=== PATIENT | male | born 1970 | race Caucasian/White ===

== ENCOUNTER 2017-09-25 08:00 | Outpatient (CLI) | payer SELFPAY | END 2017-09-25 08:01 | disposition home or self-care (01) | LOC: LAB.R 08:00 | PROVIDERS: ATTEND Nurse Practitioner Family | DX: Z20.2 Contact with and (suspected) exposure to infections with a predominantly sexual mode of transmission (principal) | CPT/HCPCS: 87491; 87591 ==

== ENCOUNTER 2018-09-28 12:52 | Emergency (ER) | payer OTHER ==
[2018-09-28 12:57] VITALS: BP 134/102
[2018-09-28] MEDS ORDERED: ASPIRIN CHEW 81 MG TABLET PO STA (13:04)
--- NOTE | 2018-09-28 13:18 | ED Physician Documentation ---
PD HPI CHEST PAIN - Stated complaint Stated Complaint: CHEST PAIN, HEAD PAIN - Chief complaint Chief Complaint: Cardiac - History obtained from History obtained from: Patient - History of Present Illness Timing - onset: Today - Additional information Additional information: 48-year-old male presents the emergency department for evaluation of chest pain which occurred after he was arrested and placed in the back of a police car. The patient was having no symptoms prior to this. The patient reports that his pain has resolved. The patient denies any recent dyspnea on exertion, URI symptoms, ongoing intermittent chest pain or any other acute symptoms. Currently the patient has no active symptoms. Symptoms resolved with belching. No other associated symptoms. No other concerns Review of Systems Constitutional: denies: Fever, Chills Eyes: denies: Discharge Ears: denies: Ear pain Cardiac: reports: Chest pain / pressure. denies: Palpitations Respiratory: denies: Dyspnea GI: denies: Abdominal Pain : denies: Dysuria Skin: denies: Rash Musculoskeletal: denies: Neck pain Neurologic: reports: Headache. denies: Focal weakness, Syncope Immunocompromised: denies: Chemotherapy PD PAST MEDICAL HISTORY - Present Medications Home Medications: Ambulatory Orders Medication Instructions Recorded Confirmed No Known Home Medications 09/28/18 09/28/18 - Allergies Allergies/Adverse Reactions: Allergies Allergy/AdvReac Type Severity Reaction Status Date / Time No Known Drug Allergies Allergy Verified 09/28/18 12:57 PD ED PE NORMAL - General General: Alert and oriented X 3, No acute distress - HEENT HEENT: Atraumatic, PERRL, EOMI, Ears normal - Neck Neck: Supple, no meningeal sign - Cardiac Cardiac: RRR, Strong equal pulses - Respiratory Respiratory: No respiratory distress, Clear bilaterally - Abdomen Abdomen: Soft - Derm Derm: Normal color - Extremities Extremities: No deformity, Normal ROM s pain - Neuro Neuro: Alert and oriented X 3, No motor deficit, Normal speech - Psych Psych: Normal affect Results - Vitals Vitals: Vital Signs - 24 hr 09/28/18 12:53 Temperature 36.7 C Heart Rate 99 Respiratory 14 Rate Blood Pressure 134/102 H O2 Saturation 100 Oxygen O2 Source Room air - EKG (time done) No standard instances Rhythm: NSR [place]: Normal Intervals: Normal IN, QRS normal Ischemia: Non specific changes PD MEDICAL DECISION MAKING - ED course ED course: The patient has decided that he does not want any testing in the emergency department, I explained to him that this would be an attempt to evaluate his chest pain to rule out any serious etiology. The patient understands this but has still refused any testing at this point. The patient understands that he could have an undiagnosed condition which left untreated could result in significant disability or . I urged the patient to return to the emergency department any point for reevaluation. The patient will be discharged into the custody of the police department Departure - Departure Disposition: 07 Against Medical Advice Clinical Impression: Chest pain Qualifiers: Chest pain type: unspecified Qualified Code(s): R07.9 - Chest pain, unspecified Condition: Good Instructions: ED Chest Pain [facility] Comments: You have decided to leave against my advice for a comprehensive evaluation in the emergency department to further assess your chest pain. This would include lab work, lab work to evaluate for possible heart attack, blood clot and chest x-rays and repeat EKGs. You understand that by leaving without any testing you may have an undiagnosed condition which if left untreated could result in significant disability or . Please return back to the emergency department at any point for reevaluation
== END 2018-09-28 13:31 | disposition left against medical advice (07) ==
LOC: EDUNIT# → ED 12:52
DX: R07.9 Chest pain, unspecified (principal); R94.31 Abnormal electrocardiogram [ECG] [EKG]
CPT/HCPCS: 80053; 80320; 83690; 84484; 85025; 85610; 93005; 99282; 99283

== ENCOUNTER 2021-06-09 08:00 | Outpatient (CLI) | payer SELFPAY | END 2021-06-09 23:59 | disposition home or self-care (01) | LOC: LAB 08:00 | PROVIDERS: ATTEND Physician Assistant Medical | DX: R10.9 Unspecified abdominal pain (principal) | CPT/HCPCS: 87086 ==

== ENCOUNTER 2022-08-29 05:50 | Emergency (ER) | payer MEDICAID ==
--- NOTE | 2022-08-29 06:41 | ED Physician Documentation ---
History of Present Illness - Stated complaint Stated Complaint: FALL/L SCAPULAR AREA SWELLING/PX - Chief complaint Chief Complaint: Trauma Ch/Bk - Additonal information Additional information: Patient is 52-year-old male presenting to the emergency department today with left shoulder pain. Endorses for falling approximately 12 feet from a tree 1 week ago. Has had pain associated with Movement of the left shoulder and decreased range of motion with the left shoulder. Reports that he felt that it was getting better but that he exacerbated a bit by lifting heavy object, his chainsaw, yesterday. Today reports that he felt a mass on the posterior aspect of his scapula. Denies ever noticing this mass previously. Review of Systems Ten Systems: 10 systems reviewed and negative PD PAST MEDICAL HISTORY - Past Medical History Past Medical History: Yes GI: Other Other Past Medical History: Umbilical Hernia - Past Surgical History Past Surgical History: No - Present Medications Home Medications: Ambulatory Orders Medication Instructions Recorded Confirmed No Known Home Medications 09/28/18 09/28/18 - Allergies Allergies/Adverse Reactions: Allergies Allergy/AdvReac Type Severity Reaction Status Date / Time No Known Drug Allergies Allergy Verified 08/29/22 06:16 - Social History Does the pt smoke?: Yes Smoking Status: Current every day smoker Does the pt drink ETOH?: No Does the pt have substance abuse?: No - Immunizations Immunizations are current?: Yes - POLST Patient has POLST: No PD ED PE NORMAL - Vitals Vital signs reviewed: Yes - General General: Alert and oriented X 3, No acute distress, Well developed/nourished - HEENT HEENT: Atraumatic, PERRL, EOMI, Ears normal, Moist mucous membranes, Pharynx benign, Dentition benign - Neck Neck: Supple, no meningeal sign, No bony TTP, No adenopathy, Thyroid normal, No JVD, No bruit, C-Spine cleared by NEXUS criteria - Cardiac Cardiac: RRR, No murmur, No gallop, No rub, Strong equal pulses - Respiratory Respiratory: No respiratory distress, Clear bilaterally - Abdomen Abdomen: Normal bowel sounds, Non tender - Male Male : Deferred - Extremities Extremities: No deformity (2 cm x 3 cm well-circumscribed mass on the posterior aspect of the left clavicle. There is no associated erythema or rubor.), Other (Patient has decreased range of motion of the left shoulder secondary to pain. Full and normal level of flexion and extension to the left hand, pronation and supination and flexion and extension to the fingers and thumb.) Results - Vitals Vitals: Vital Signs - 24 hr 08/29/22 06:05 Temperature 36.4 C L Heart Rate 89 Respiratory 16 Rate Blood Pressure 149/79 H O2 Saturation 100 Oxygen O2 Source Room air PD Medical Decision Making - ED course Complexity details: considered differential, d/w patient ED course: Patient is 52-year-old male presenting to the emergency department with pain and decreased range of motion associated with his left shoulder as well as a 2 cm x 3 cm well-circumscribed mass palpable on the posterior aspect of his left scapula. Reported that his symptoms began initially after falling from a tree 1 week ago. States that he was having some improvement but believes that he reinjured his left upper extremity while lifting his chainsaw earlier today. Physical exam demonstrates a and neurovascularly intact left upper extremity however patient has decreased range of motion at the left shoulder secondary to pain. Cannot abduct, abduct or lift to shoulder greater than 45 degrees. Additionally physical exam demonstrated a 2 cm x 3 cm well-circumscribed palpable mass on the posterior aspect of his left clavicle. There was no associated erythema or rubor to indicate an inflammatory process and overall my initial clinical impression of this mass is that it is likely a sebaceous cyst. I have ordered for some medication for pain control as well as x-rays of the chest and left shoulder. I will be signing the patient out to the oncoming physician, please see their documentation for further detail.
[2022-08-29] MEDS: HYDROcod/ACETAM 5/325 MG TABLET PO STA (06:50)
--- NOTE | 2022-08-29 08:06 | XRAY Report ---
PROCEDURE: Shoulder 3 View BILAT INDICATIONS: fall TECHNIQUE: 3 views of the right and left shoulder shoulder were acquired. COMPARISON: None. FINDINGS: Bones: No acute fractures or dislocations. No suspicious bony lesions. Visualized ribs appear inta ct. Degenerative changes are seen of the acromioclavicular joints bilaterally. Soft tissues: Possible small calcification posterior to the right humeral head seen on one view only may be secondary to calcific tendinopathy. IMPRESSION: 1.No acute osseous abnormality. If there is clinical concern or persistent symptoms, additional imagi ng such as repeat radiographs or advanced imaging (e.g. CT, MRI) may be helpful for further evaluatio n. 2.Suspected right distal rotator cuff calcific tendinopathy. Reviewed by: Franklin Brooks MD on 08/29/2022 8:05 AM PST Approved by: Franklin Brooks MD on 08/29/2022 8:05 AM PST Station ID: [id number]
--- NOTE | 2022-08-29 08:10 | XRAY Report ---
PROCEDURE: Chest 2 View X-Ray INDICATIONS: cough TECHNIQUE: 2 views of the chest were acquired. COMPARISON: Chest radiographs 07/30/2009 FINDINGS: Surgical changes and devices: None. Lungs and pleura: No pleural effusions or pneumothorax. Lungs are clear. Mediastinum: Cardiac silhouette has mildly enlarged when compared to the prior radiographs. The aorta appears mildly tortuous with prominence of the ascending aorta. Bones and chest wall: No suspicious bony abnormalities. Soft tissues appear unremarkable. Mild dege nerative changes are seen in the spine. IMPRESSION: Mildly enlarged cardiac silhouette. There is prominence of the ascending thoracic aortic shadow, whic h may be secondary to tortuosity or underlying ascending aortic aneurysm. CT could be performed for c onfirmation if indicated clinically. Reviewed by: Franklin Brooks MD on 08/29/2022 8:09 AM PST Approved by: Franklin Brooks MD on 08/29/2022 8:09 AM PST Station ID: [id number]
[2022-08-29 09:48] VITALS: BP 144/72
== END 2022-08-29 09:46 | disposition home or self-care (01) ==
LOC: ED 05:50
DX: S46.912A Strain of unspecified muscle, fascia and tendon at shoulder and upper arm level, left arm, initial encounter (principal); X50.0XXA Overexertion from strenuous movement or load, initial encounter; Y93.89 Activity, other specified; L72.3 Sebaceous cyst; M67.813 Other specified disorders of tendon, right shoulder; F17.200 Nicotine dependence, unspecified, uncomplicated
CPT/HCPCS: 71046; 73030; 99281; 99284; A9270

== ENCOUNTER 2023-09-27 08:00 | Outpatient (CLI) | payer MEDICAID ==
[2023-09-27 20:00] LABS: AMPHETAMINE SCREEN,URINE NEGATIVE (NEGATIVE); BARBITURATE SCREEN,UR NEGATIVE (NEGATIVE); BENZODIAZEPINES SCREEN, URINE NEGATIVE (NEGATIVE); BUPRENORPHINE SCREEN, URINE NEGATIVE (NEGATIVE); COCAINE SCREEN URINE NEGATIVE (NEGATIVE); METHADONE SCREEN, URINE NEGATIVE (NEGATIVE); METHAMPHETAMINES SCREEN, URINE NEGATIVE (NEGATIVE); OPIATE SCREEN, URINE NEGATIVE (NEGATIVE); OXYCODONE SCREEN, URINE NEGATIVE (NEGATIVE); THC CANNABINOID SCREEN, URINE POSITIVE (NEGATIVE); TRICYCLIC ANTIDEPRESSANT,URINE NEGATIVE (NEGATIVE)
== END 2023-09-27 23:59 | disposition home or self-care (01) ==
LOC: LAB.F 08:00
PROVIDERS: ATTEND Physician Assistant Medical
DX: F15.10 Other stimulant abuse, uncomplicated (principal)
CPT/HCPCS: 80306

== ENCOUNTER 2023-12-18 14:20 | Outpatient (CLI) | payer MEDICAID ==
[2023-12-18 19:44] LABS: BASOPHILS # (AUTO) 0.1 10^3/uL (0.0-0.1); EOSINOPHILS # (AUTO) 0.1 10^3/uL (0.0-0.7); EOSINOPHILS % (AUTO) 2.1 %; HCT - HEMATOCRIT 48.3 % (42.0-52.0); HGB - HEMOGLOBIN 15.6 g/dL (14.0-18.0); LYMPHOCYTES # (AUTO) 2.5 10^3/uL (1.5-3.5); MEAN CORPUSCULAR HEMOGLOBIN 27.8 pg (27.0-31.0); MEAN CORPUSCULAR HGB CONC 32.3 g/dL (32.0-36.0); MEAN CORPUSCULAR VOLUME 86.1 fL (80.0-94.0); MEAN PLATELET VOLUME 9.5 fL (7.4-11.4); MONOCYTES # (AUTO) 0.7 10^3/uL (0.0-1.0); MONOCYTES % (AUTO) 11.5 %; NEUTROPHILS # (AUTO) 2.8 10^3/uL (1.5-6.6); NEUTROPHILS % (AUTO) 44.2 %; PLT - PLATELET COUNT 322 10^3/uL (130-450); RED BLOOD COUNT 5.61 10^6/uL (4.70-6.10); RED CELL DISTRIBUTION WIDTH 15.3 % (12.0-15.0); WHITE BLOOD COUNT 6.2 x10^3/uL (4.8-10.8)
[2023-12-18 19:56] LABS: ALBUMIN 4.3 g/dL (3.2-5.5); ALBUMIN/GLOBULIN RATIO 1.4 (1.0-2.2); ALKALINE PHOSPHATASE 104 IU/L (42-121); ALT ALANINE AMINOTRANSFERASE 18 IU/L (10-60); AST ASPARTATE AMINOTRANSFERASE 20 IU/L (10-42); BILIRUBIN,TOTAL 0.3 mg/dL (0.2-1.0); BUN - BLOOD UREA NITROGEN 15 mg/dL (6-20); CALCIUM 9.6 mg/dL (8.5-10.3); CARBON DIOXIDE - CO2 29 mmol/L (21-32); CHLORIDE 105 mmol/L (101-111); CHOL/HDL RATIO 5.8 (<5.0); CHOLESTEROL 272 mg/dL; CREATININE 0.9 mg/dL (0.6-1.3); GFR - MDRD 88 (>89); GLUCOSE 76 mg/dL (74-104); HDL CHOLESTEROL 47 mg/dL; LDL CHOLESTEROL,CALCULATED 157 mg/dL; LDL/HDL RATIO 3.3 (<3.6); POTASSIUM 4.3 mmol/L (3.5-4.5); SODIUM 137 mmol/L (135-145); TOTAL PROTEIN 7.4 g/dL (6.4-8.9); TRIGLYCERIDES 341 mg/dL (48-352); VLDL CHOLESTEROL 68 mg/dL
[2023-12-18 21:00] LABS: ESTIMATED AVERAGE GLUCOSE 128 mg/dL (70-100); HEMOGLOBIN A1c% 6.1 % (4.27-6.07)
== END 2023-12-18 14:21 | disposition home or self-care (01) ==
LOC: LAB.S 14:20
PROVIDERS: ATTEND Physician Assistant Medical
DX: Z13.9 Encounter for screening, unspecified (principal); F15.10 Other stimulant abuse, uncomplicated; R36.9 Urethral discharge, unspecified
CPT/HCPCS: 36415; 80053; 80061; 80306; 83036; 83721; 85025; 86592; 86803; 87389; 87491; 87591; 87661

== ENCOUNTER 2023-12-19 08:00 | Outpatient (CLI) | payer MEDICAID ==
[2023-12-19 19:58] LABS: AMPHETAMINE SCREEN,URINE NEGATIVE (NEGATIVE); BARBITURATE SCREEN,UR NEGATIVE (NEGATIVE); BENZODIAZEPINES SCREEN, URINE NEGATIVE (NEGATIVE); BUPRENORPHINE SCREEN, URINE NEGATIVE (NEGATIVE); COCAINE SCREEN URINE NEGATIVE (NEGATIVE); METHADONE SCREEN, URINE NEGATIVE (NEGATIVE); METHAMPHETAMINES SCREEN, URINE NEGATIVE (NEGATIVE); OPIATE SCREEN, URINE NEGATIVE (NEGATIVE); OXYCODONE SCREEN, URINE NEGATIVE (NEGATIVE); THC CANNABINOID SCREEN, URINE POSITIVE (NEGATIVE); TRICYCLIC ANTIDEPRESSANT,URINE NEGATIVE (NEGATIVE)
[2023-12-19 23:50] LABS: CHLAMYDIA TRACHOMATIS DNA NEGATIVE (NEGATIVE); NEISSERIA GONORRHOEAE DNA NEGATIVE (NEGATIVE); TRICHOMONAS VAGINALIS DNA NEGATIVE (NEGATIVE)
== END 2023-12-19 23:59 | disposition home or self-care (01) ==
LOC: LAB.S 08:00
PROVIDERS: ATTEND Physician Assistant Medical
DX: R36.9 Urethral discharge, unspecified (principal); F15.10 Other stimulant abuse, uncomplicated
CPT/HCPCS: 80306; 87491; 87591; 87661

== ENCOUNTER 2024-04-26 22:22 | Outpatient (CLI) | payer MEDICAID | END 2024-04-26 22:23 | disposition EMS.NT | LOC: EMS 22:22 | DX: R10.31 Right lower quadrant pain (principal) ==

== ENCOUNTER 2024-05-12 18:58 | Outpatient (CLI) | payer MEDICAID, OTHER | END 2024-05-12 18:59 | disposition critical access hospital (66) | LOC: EMS 18:58 | DX: R56.9 Unspecified convulsions (principal); R07.9 Chest pain, unspecified; R25.1 Tremor, unspecified; R61 Generalized hyperhidrosis | CPT/HCPCS: A0425; A0429 ==

== ENCOUNTER 2024-05-12 19:35 | Emergency (ER) | payer MEDICAID, OTHER ==
--- NOTE | 2024-05-12 19:46 | ED Physician Documentation ---
PD HPI SEIZURE - Stated complaint Stated Complaint: SZ - History obtained from History obtained from: EMS, Police - Additional information Additional information: 54-year-old gentleman presents [facility] ambulance from [facility]. Was booked a few days ago. Unclear if he was an alcoholic, but it sounds like there was some history of drug use. Today he was found with potential seizure activity. Prehospital blood sugar was unremarkable. No history is available from the patient due to altered mental status. PD PAST MEDICAL HISTORY - Past Medical History GI: Other - Past Surgical History Past Surgical History: No - Present Medications Home Medications: Ambulatory Orders Medication Instructions Recorded Confirmed Aspirin [Astor Aspirin] 81 mg PO DAILY 05/12/24 05/12/24 Atorvastatin Calcium 40 mg PO QPM 05/12/24 05/12/24 Famotidine [Acid Maintenance Apprentice] 20 mg PO BID 05/12/24 05/12/24 lisinopriL [Zestril] 5 mg PO QPM 05/12/24 05/12/24 metFORMIN [Glucophage] 500 mg PO BID 05/12/24 05/12/24 - Allergies Allergies/Adverse Reactions: Allergies Allergy/AdvReac Type Severity Reaction Status Date / Time No Known Drug Allergies Allergy Verified 05/12/24 19:49 - Social History Does the pt smoke?: Yes Smoking Status: Current every day smoker Does the pt drink ETOH?: No Does the pt have substance abuse?: No - Immunizations Immunizations are current?: Yes - POLST Patient has POLST: No PD ED PE NORMAL - Vitals Vital signs reviewed: Yes - General General: Other (This is an ill-appearing and very diaphoretic man who is keeping his eyes closed and can only say okay. He does not follow commands.) - HEENT HEENT: Other (Midpoint symmetric pupils) - Neck Neck: Supple, no meningeal sign, No bony TTP - Cardiac Cardiac: RRR, No murmur, Other (Well-healed sternotomy scar, EMS tells me he had a valvular repair or replacement.) - Respiratory Respiratory: No respiratory distress, Clear bilaterally - Abdomen Abdomen: Other (Severe diffuse abdominal tenderness) - Back Back: No CVA TTP, No spinal TTP - Derm Derm: Normal color, Warm and dry - Extremities Extremities: No edema, No calf tenderness / cord - Neuro Eye Opening: None Motor: Withdraws to Pain Verbal: Incomprehensible GCS Score: 7 Results - Vitals Vitals: Vital Signs - 24 hr 05/12/24 05/12/24 05/12/24 19:42 20:05 20:33 Temperature 37.4 C Heart Rate 87 79 79 Respiratory 17 13 14 Rate Blood Pressure 148/133 H 152/96 H 161/105 H O2 Saturation 100 97 98 05/12/24 21:20 Temperature 36.9 C Heart Rate 71 Respiratory 13 Rate Blood Pressure 145/98 H O2 Saturation 98 Oxygen O2 Source Room air - Labs Labs: Laboratory Tests 05/12/24 05/12/24 05/12/24 19:54 19:54 19:54 WBC 7.5 RBC 4.98 Hgb 14.9 Hct 44.5 MCV 89.4 MCH 29.9 MCHC 33.5 RDW 12.8 Plt Count 392 MPV 8.8 Neut # (Auto) 4.3 Lymph # (Auto) 2.2 [place] # (Auto) 0.8 Eos # (Auto) 0.2 Baso # (Auto) 0.0 Absolute Nucleated RBC 0.00 Nucleated RBC % 0.0 VBG pH VBG pCO2 VBG pO2 VBG HCO3 VBG Total CO2 VBG O2 Saturation VBG Base Excess Sodium 140 Potassium 3.5 Chloride 103 Carbon Dioxide 31 Anion Gap 6.0 BUN 11 Creatinine 0.7 Estimated GFR (MDRD) 117 Glucose 115 H Lactic Acid 1.6 Calcium 9.3 Phosphorus 2.4 L Magnesium 1.6 L Total Bilirubin 0.3 AST 14 ALT 13 Alkaline Phosphatase 82 Total Creatine Kinase 67 Total Protein 6.7 Albumin 4.0 Globulin 2.7 Albumin/Globulin Ratio 1.5 Urine Color Urine Clarity Urine pH Ur Specific [place] Urine Protein Urine Glucose (UA) Urine Ketones Urine Occult Blood Urine Nitrite Urine Bilirubin Urine Urobilinogen Ur Leukocyte Esterase Ur Microscopic Review Urine Culture Comments Salicylates < 1.5 Urine Opiates Screen Ur Buprenorphine Scrn Ur Oxycodone Screen Urine Methadone Screen Acetaminophen < 0.1 Ur Barbiturates Screen Ur Tricyclics Screen Ur Phencyclidine Scrn Ur Amphetamine Screen U Methamphetamines Scrn U Benzodiazepines Scrn Urine Cocaine Screen U Cannabinoids Screen Ur Drug Screen Comment Ethyl Alcohol < 10.0 05/12/24 05/12/24 19:54 20:24 WBC RBC Hgb Hct MCV MCH MCHC RDW Plt Count MPV Neut # (Auto) Lymph # (Auto) [place] # (Auto) Eos # (Auto) Baso # (Auto) Absolute Nucleated RBC Nucleated RBC % VBG pH 7.389 VBG pCO2 47.5 VBG pO2 30.0 VBG HCO3 28.0 VBG Total CO2 29.5 H VBG O2 Saturation 59.4 L VBG Base Excess 2.3 H Sodium Potassium Chloride Carbon Dioxide Anion Gap BUN Creatinine Estimated GFR (MDRD) Glucose Lactic Acid Calcium Phosphorus Magnesium Total Bilirubin AST ALT Alkaline Phosphatase Total Creatine Kinase Total Protein Albumin Globulin Albumin/Globulin Ratio Urine Color LIGHT YELLOW Urine Clarity CLEAR Urine pH 6.5 Ur Specific [place] 1.015 Urine Protein NEGATIVE Urine Glucose (UA) NEGATIVE Urine Ketones NEGATIVE Urine Occult Blood NEGATIVE Urine Nitrite NEGATIVE Urine Bilirubin NEGATIVE Urine Urobilinogen 0.2 (NORMAL) Ur Leukocyte Esterase NEGATIVE Ur Microscopic Review NOT INDICATED Urine Culture Comments NOT INDICATED Salicylates Urine Opiates Screen NEGATIVE Ur Buprenorphine Scrn NEGATIVE Ur Oxycodone Screen NEGATIVE Urine Methadone Screen NEGATIVE Acetaminophen Ur Barbiturates Screen NEGATIVE Ur Tricyclics Screen NEGATIVE Ur Phencyclidine Scrn NEGATIVE Ur Amphetamine Screen POSITIVE H U Methamphetamines Scrn POSITIVE H U Benzodiazepines Scrn NEGATIVE Urine Cocaine Screen NEGATIVE U Cannabinoids Screen POSITIVE H Ur Drug Screen Comment CUTOFF CONC BELOW: Ethyl Alcohol - Rads (name of study) CT head, C-spine, and abdomen pelvis were negative for acute findings. Relevant Findings:: Final report received, EMP independent interpretation of test PD Medical Decision Making - ED course ED course: He presents nearly obtunded with potential seizure activity. That said he seemed to be protecting his airway. He went over for scan including the belly since he did seem tender on initial evaluation. He came back to the department I reexamined him. He was much more awake. Slightly confused but talking and cooperative. He denies recent drug or alcohol use. Nor does he have any history of seizures. On reexamination at that time, approximately 9 PM his abdomen was nontender. Workup demonstrates normal CBC, venous blood gas, unrema rkable CMP, normal lactate, normal urine, and toxicology testing positive for methamphetamines and cannabis. On reexamination at 9:44 PM he is awake and conversant. He does not remember what happened. I do not know if this was seizure activity or some sort of withdrawal process. He is stable now although with normal vital signs save mild hypertension. CT imaging was all negative. Attempted to contact [facility] nurse practitioner, Laurence Rodrigues with no response. I discussed with the deputy at the bedside and they are able to put him in seizure precautions which I think would be appropriate. Departure - Departure Disposition: 01 Home, Self Care Clinical Impression: Altered mental status Qualifiers: Altered mental status type: delirium Qualified Code(s): R41.0 - Disorientation, unspecified Condition: Good Record reviewed to determine appropriate education?: Yes Instructions: ED Seizure New Onset Unk Cause Comments: He was seen today for potential seizure activity, it did not look exactly like seizure when he got here, but labs were all negative with the exception of positive toxicology testing for methamphetamines and cannabis. CT of the head, cervical spine, and abdomen pelvis were all negative. He was tender on abdominal examination on arrival but that resolved prior to discharge. He should be in seizure precautions and have what ever withdrawal precautions the [facility] nurse practitioner thinks are appropriate. Consider follow-up with neurology as an outpatient.
[2024-05-12] MEDS ORDERED: iohexoL-300 100 ML VIAL ONE (19:50)
[2024-05-12 20:03] LABS: BASOPHILS % (AUTO) 0.5 %; EOSINOPHILS # (AUTO) 0.2 10^3/uL (0.0-0.7); EOSINOPHILS % (AUTO) 2.4 %; HCT - HEMATOCRIT 44.5 % (42.0-52.0); HGB - HEMOGLOBIN 14.9 g/dL (14.0-18.0); LYMPHOCYTES # (AUTO) 2.2 10^3/uL (1.5-3.5); LYMPHOCYTES % (AUTO) 29.1 %; MEAN CORPUSCULAR HEMOGLOBIN 29.9 pg (27.0-31.0); MEAN CORPUSCULAR HGB CONC 33.5 g/dL (32.0-36.0); MEAN CORPUSCULAR VOLUME 89.4 fL (80.0-94.0); MEAN PLATELET VOLUME 8.8 fL (7.4-11.4); MONOCYTES # (AUTO) 0.8 10^3/uL (0.0-1.0); MONOCYTES % (AUTO) 10.4 %; NEUTROPHILS # (AUTO) 4.3 10^3/uL (1.5-6.6); NEUTROPHILS % (AUTO) 57.5 %; PLT - PLATELET COUNT 392 10^3/uL (130-450); RED BLOOD COUNT 4.98 10^6/uL (4.70-6.10); RED CELL DISTRIBUTION WIDTH 12.8 % (12.0-15.0); WHITE BLOOD COUNT 7.5 x10^3/uL (4.8-10.8)
[2024-05-12 20:06] LABS: VBG BASE EXCESS 2.3 mmol/L (-2 - +2); VBG OXYGEN SATURATION 59.4 % (60-80); VBG PCO2 47.5 mmHg (41-51); VBG PH 7.389 (7.31-7.41); VBG TOTAL CO2 29.5 mmol/L (24-29)
[2024-05-12 20:20] LABS: ALBUMIN/GLOBULIN RATIO 1.5 (1.0-2.2); ALKALINE PHOSPHATASE 82 IU/L (42-121); ALT ALANINE AMINOTRANSFERASE 13 IU/L (10-60); AST ASPARTATE AMINOTRANSFERASE 14 IU/L (10-42); BILIRUBIN,TOTAL 0.3 mg/dL (0.2-1.0); BUN - BLOOD UREA NITROGEN 11 mg/dL (6-20); CALCIUM 9.3 mg/dL (8.5-10.3); CARBON DIOXIDE - CO2 31 mmol/L (21-32); CHLORIDE 103 mmol/L (101-111); CK- CREATINE KINASE 67 IU/L (30-223); CREATININE 0.7 mg/dL (0.6-1.3); ETOH - ETHANOL < 10.0 mg/dL; GFR - MDRD 117 (>89); GLUCOSE 115 mg/dL (74-104); MAGNESIUM 1.6 mg/dL (1.7-2.3); PHOSPHORUS 2.4 mg/dL (2.5-5.0); POTASSIUM 3.5 mmol/L (3.5-4.5); SODIUM 140 mmol/L (135-145); TOTAL PROTEIN 6.7 g/dL (6.4-8.9)
[2024-05-12 20:23] LABS: SALICYLATE < 1.5 mg/dL
[2024-05-12 20:24] LABS: ACETAMINOPHEN < 0.1 ug/mL
[2024-05-12 20:50] LABS: BILIRUBIN,URINE NEGATIVE (NEGATIVE); GLUCOSE, URINE (UA) NEGATIVE (NEGATIVE); KETONES,URINE (UA) NEGATIVE (NEGATIVE); LEUKOCYTE ESTERASE, URINE NEGATIVE (NEGATIVE); NITRITE,URINE NEGATIVE (NEGATIVE); OCCULT BLOOD,URINE NEGATIVE (NEGATIVE); PH,URINE 6.5 PH (5.0-7.5); PROTEIN,URINE NEGATIVE (NEGATIVE); UROBILINOGEN,URINE 0.2 (NORMAL) E.U./dL (NORMAL)
[2024-05-12 20:52] LABS: CLARITY,URINE CLEAR (CLEAR)
--- NOTE | 2024-05-12 20:55 | CT Report ---
PROCEDURE: Head WO INDICATIONS: ams TECHNIQUE: Noncontrast 4.5 mm thick angled axial sections acquired from the foramen magnum to the vertex. For r adiation dose reduction, the following was used: automated exposure control, adjustment of mA and/or kV according to patient size. COMPARISON: None. FINDINGS: Image quality: Excellent. CSF spaces: Basal cisterns are patent. No extra-axial fluid collections. Ventricles are normal in size and shape. Brain: No midline shift. No intracranial masses or hemorrhage. Dick[place]-white matter interface is norm al. Skull and face: Calvarium and visualized facial bones are intact, without suspicious lesions. Sinuses: Visualized sinuses and mastoids are clear. IMPRESSION: No acute intracranial pathology. Reviewed by: Mercy Michel MD on 05/12/2024 8:54 PM PDT Approved by: Mercy Michel MD on 05/12/2024 8:54 PM PDT Station ID: [id number]
[2024-05-12 21:08] LABS: AMPHETAMINE SCREEN,URINE POSITIVE (NEGATIVE); BARBITURATE SCREEN,UR NEGATIVE (NEGATIVE); BENZODIAZEPINES SCREEN, URINE NEGATIVE (NEGATIVE); BUPRENORPHINE SCREEN, URINE NEGATIVE (NEGATIVE); COCAINE SCREEN URINE NEGATIVE (NEGATIVE); METHADONE SCREEN, URINE NEGATIVE (NEGATIVE); METHAMPHETAMINES SCREEN, URINE POSITIVE (NEGATIVE); OPIATE SCREEN, URINE NEGATIVE (NEGATIVE); OXYCODONE SCREEN, URINE NEGATIVE (NEGATIVE); THC CANNABINOID SCREEN, URINE POSITIVE (NEGATIVE); TRICYCLIC ANTIDEPRESSANT,URINE NEGATIVE (NEGATIVE)
--- NOTE | 2024-05-12 21:19 | CT Report ---
PROCEDURE: Cervical Spine WO INDICATIONS: ams poss trauma TECHNIQUE: Noncontrast 3 mm thick sections acquired from the skull base to the T4 level. Sagittal and coronal r eformats were then constructed. For radiation dose reduction, the following was used: automated exp osure control, adjustment of mA and/or kV according to patient size. COMPARISON: None. FINDINGS: Image quality: Excellent. Bones: No fractures or dislocations. Moderate degenerative spurring at the atlantodental interval. Mild disc height loss from C2 through C6 and moderate to severe disc height loss at C6-7. Circumferen tial disc osteophyte at C6-7 causing a mild central canal narrowing and moderate bilateral foraminal narrowing. Visualized superior ribs are intact. Soft tissues: Prevertebral soft tissues are normal in thickness. No paravertebral hematomas. No ap ical pneumothoraces. IMPRESSION: No CT evidence of acute cervical spine trauma. Chronic appearing moderate degenerative changes at the C6-7 level creating foraminal and central gabino l narrowing. Reviewed by: Mercy Michel MD on 05/12/2024 9:17 PM PDT Approved by: Mercy Michel MD on 05/12/2024 9:17 PM PDT Station ID: [id number]
--- NOTE | 2024-05-12 21:23 | CT Report ---
PROCEDURE: Abdomen/Pelvis W INDICATIONS: abd pain iv only CONTRAST: IV 100 ML OMNI 300 TECHNIQUE: After the administration of intravenous contrast, a CT scan of the abdomen and pelvis was performed. Images were recorded and evaluated at appropriate window settings. Reformats: coronal and sagittal. F or radiation dose reduction, the following was used: automated exposure control, adjustment of mA and /or kV according to patient size. COMPARISON: None. FINDINGS: Image quality: Diagnostic. Lower chest: Bibasilar atelectatic changes. Prior median sternotomy and aortic valvuloplasty change. Liver: No solid mass. Gallbladder: Contracted. Biliary tree: No intrahepatic or extrahepatic dilation, accounting for age. Spleen: No splenomegaly. Pancreas: No pancreatic ductal dilation. Adrenals: No adrenal nodule. Kidneys and ureters: No hydronephrosis. No renal cystic lesion which requires follow up. No solid mas s. Stomach, bowel and peritoneum: Mild motion. Normal stomach and small bowel. There is ingested materia l in the stomach. Normal appendix. No pericolonic inflammation or wall thickening. No pathologic free fluid. Lymph nodes: No central or retroperitoneal adenopathy. Vessels: Normal caliber abdominal aorta, IVC, and portal vein. Aortic left renal vein. PELVIS Reproductive organs: Mild prostatomegaly. Bladder: No abnormal wall thickening, accounting for underdistention. Pelvic lymph nodes: No pelvic adenopathy by size criteria. Bones: No aggressive osseous abnormality. Moderate bilateral hip joint degeneration. Other: No significant ventral or inguinal hernia. IMPRESSION: No acute process. Reviewed by: Mercy Michel MD on 05/12/2024 9:21 PM PDT Approved by: Mercy Michel MD on 05/12/2024 9:21 PM PDT Station ID: [id number]
[2024-05-12 22:14] VITALS: BP 152/96; O2SAT 100
[2024-05-12] MEDS: iohexoL-300 100 ML VIAL IVP ONE (22:38)
== END 2024-05-12 21:55 | disposition home or self-care (01) ==
LOC: EDUNIT# → ED 19:35
DX: R41.0 Disorientation, unspecified (principal); F17.200 Nicotine dependence, unspecified, uncomplicated
CPT/HCPCS: 36415; 70450; 72125; 74177; 80053; 80143; 80179; 80306; 81003; 82077; 82550; 82803; 83605; 83735; 84100; 85025; 87040; 93005; 99284; Q9967; 81001; 87086